=== PATIENT | male | born 1960 | race African-American/Black ===

== ENCOUNTER 2020-04-24 09:36 | Outpatient (REF) | payer OTHER, SELFPAY ==
[2020-04-24 11:47] LABS: MANUAL DIFF FLAG NO
[2020-04-24 11:54] LABS: Basophils Percent Auto 1.1 % (0-2); Eosinophils Absolute Auto 0.3 X10*3/uL (0.0-0.4); Eosinophils Percent Auto 6.6 % (0-4); Hematocrit 39.6 % (42-52); Hemoglobin 12.3 g/dl (14.0-18.0); Lymphocytes Absolute Auto 1.6 X10*3/uL (1.2-4.9); Lymphocytes Percent Auto 41.1 % (20-40); Mean Corpuscular HGB Conc 31.1 g/dl (31.0-36.0); Mean Corpuscular Hemoglobin 23.6 pg (27.0-33.0); Mean Platelet Volume 11.3 fL (9.4-12.4); Monocytes Absolute Auto 0.4 X10*3/uL (0.1-1.2); Monocytes Percent Auto 10.9 % (2-11); Neutrophils Absolute Auto 1.5 X10*3/uL (2.0-8.3); Neutrophils Percent Auto 40.3 % (45-73); Platelet Count 338 X10*3/uL (160-400); Red Blood Count 5.21 X10*6/uL (4.60-5.80); Red Cell Distribution Width 13.7 % (11.0-16.0); White Blood Count 3.8 X10*3/uL (4.8-10.8)
[2020-04-24 12:43] LABS: Prostate Specific Antigen 0.83 ng/mL (<0.05-4.0)
[2020-04-24 13:27] LABS: Alanine Aminotransferase 20 U/L (0-40); Albumin Level 4.3 g/dL (3.5-5.0); Alkaline Phosphatase 67 U/L (39-117); Anion Gap 11 (12-20); Aspartate Amino Transferase 22 U/L (5-37); Bilirubin Total 0.6 mg/dL (0.0-1.0); Blood Urea Nitrogen 10 mg/dL (9-16); Calcium 8.9 mg/dL (8.4-10.2); Carbon Dioxide 26 mmol/L (22-29); Chloride 105 mmol/L (96-108); Cholesterol 196 mg/dL; Estimated Glomerular Filt Rate > 60; Glucose Fasting 95 mg/dL (60-99); HDL Cholesterol 42 mg/dL; LDL Cholesterol Calculated 137 mg/dl; Potassium 4.1 mmol/l (3.3-5.1); Sodium 138 mmol/L (135-145); Total Protein 7.3 g/dL (6.5-8.0); Triglycerides 88 mg/dL
== END 2020-04-24 09:37 | disposition home or self-care (01) ==
LOC: HO.10HDL 09:36
PROVIDERS: Visit Provider Internal Medicine Medical Oncology
DX: E78.5 Hyperlipidemia, unspecified (principal); E66.3 Overweight
CPT/HCPCS: 36415; 80053; 80061; 84153; 85025

== ENCOUNTER 2020-08-13 09:40 | Outpatient (REF) | payer OTHER, SELFPAY ==
[2020-08-13 10:34] LABS: Basophils Percent Auto 0.5 % (0-2); Eosinophils Absolute Auto 0.2 X10*3/uL (0.0-0.4); Eosinophils Percent Auto 6.3 % (0-4); Hematocrit 41.4 % (42-52); Hemoglobin 12.6 g/dl (14.0-18.0); Imm Gran Abs Auto 0.01 X10*3/uL (0.00-0.03); Imm Gran Pct Auto 0.3 % (0.0-0.4); Lymphocytes Absolute Auto 1.9 X10*3/uL (1.2-4.9); Lymphocytes Percent Auto 49.9 % (20-40); MANUAL DIFF FLAG NO; Mean Corpuscular HGB Conc 30.4 g/dl (31.0-36.0); Mean Corpuscular Hemoglobin 23.6 pg (27.0-33.0); Mean Corpuscular Volume 77.5 fL (80-98); Mean Platelet Volume 11.3 fL (9.4-12.4); Monocytes Absolute Auto 0.4 X10*3/uL (0.1-1.2); Monocytes Percent Auto 10.4 % (2-11); Neutrophils Absolute Auto 1.3 X10*3/uL (2.0-8.3); Neutrophils Percent Auto 32.6 % (45-73); Platelet Count 312 X10*3/uL (160-400); Red Blood Count 5.34 X10*6/uL (4.60-5.80); Red Cell Distribution Width 13.6 % (11.0-16.0); White Blood Count 3.8 X10*3/uL (4.8-10.8)
[2020-08-13 11:05] LABS: Alanine Aminotransferase 20 U/L (0-40); Albumin Level 4.3 g/dL (3.5-5.0); Alkaline Phosphatase 71 U/L (39-117); Anion Gap 12 (12-20); Aspartate Amino Transferase 20 U/L (5-37); Bilirubin Total 0.6 mg/dL (0.0-1.0); Blood Urea Nitrogen 15 mg/dL (9-16); Carbon Dioxide 27 mmol/L (22-29); Chloride 105 mmol/L (96-108); Cholesterol 219 mg/dL; Estimated Glomerular Filt Rate > 60; Glucose Fasting 100 mg/dL (60-99); HDL Cholesterol 47 mg/dL; LDL Cholesterol Calculated 162 mg/dl; Sodium 140 mmol/L (135-145); Total Protein 7.5 g/dL (6.5-8.0); Triglycerides 50 mg/dL
[2020-08-13 11:28] LABS: Prostate Specific Antigen 0.63 ng/mL (<0.05-4.0)
== END 2020-08-13 09:41 | disposition home or self-care (01) ==
LOC: HO.10HDL 09:40
PROVIDERS: Visit Provider Internal Medicine Medical Oncology
DX: E78.5 Hyperlipidemia, unspecified (principal); E66.3 Overweight; Z12.5 Encounter for screening for malignant neoplasm of prostate
CPT/HCPCS: 36415; 80053; 80061; 84153; 85025

== ENCOUNTER 2021-04-13 11:03 | Outpatient (REF) | payer OTHER, SELFPAY ==
[2021-04-13 13:36] LABS: MANUAL DIFF FLAG NO
[2021-04-13 13:52] LABS: Basophils Percent Auto 1.3 % (0-2); Eosinophils Absolute Auto 0.2 X10*3/uL (0.0-0.4); Eosinophils Percent Auto 6.6 % (0-4); Hematocrit 38.7 % (42-52); Hemoglobin 11.8 g/dl (14.0-18.0); Imm Gran Abs Auto 0.01 X10*3/uL (0.00-0.03); Imm Gran Pct Auto 0.3 % (0.0-0.4); Lymphocytes Absolute Auto 1.4 X10*3/uL (1.2-4.9); Lymphocytes Percent Auto 44.1 % (20-40); Mean Corpuscular HGB Conc 30.5 g/dl (31.0-36.0); Mean Corpuscular Hemoglobin 23.2 pg (27.0-33.0); Mean Platelet Volume 11.6 fL (9.4-12.4); Monocytes Absolute Auto 0.4 X10*3/uL (0.1-1.2); Monocytes Percent Auto 11.6 % (2-11); Neutrophils Absolute Auto 1.2 X10*3/uL (2.0-8.3); Neutrophils Percent Auto 36.1 % (45-73); Platelet Count 331 X10*3/uL (160-400); Red Blood Count 5.09 X10*6/uL (4.60-5.80); Red Cell Distribution Width 13.5 % (11.0-16.0); White Blood Count 3.2 X10*3/uL (4.8-10.8)
[2021-04-13 14:58] LABS: Alanine Aminotransferase 17 U/L (0-40); Albumin Level 4.3 g/dL (3.5-5.0); Alkaline Phosphatase 67 U/L (39-117); Anion Gap 11 (12-20); Aspartate Amino Transferase 29 U/L (5-37); Bilirubin Total 0.7 mg/dL (0.0-1.0); Blood Urea Nitrogen 15 mg/dL (9-16); Calcium 8.9 mg/dL (8.4-10.2); Carbon Dioxide 26 mmol/L (22-29); Chloride 109 mmol/L (96-108); Estimated Glomerular Filt Rate > 60; Glucose Fasting 100 mg/dL (60-99); Potassium 4.1 mmol/L (3.3-5.1); Sodium 142 mmol/L (135-145); Total Protein 7.2 g/dL (6.5-8.0)
[2021-04-13 15:48] LABS: Prostate Specific Antigen 0.79 ng/mL (<0.05-4.0)
== END 2021-04-13 11:04 | disposition home or self-care (01) ==
LOC: HO.10HDL 11:03
PROVIDERS: Visit Provider Internal Medicine Medical Oncology
DX: Z12.5 Encounter for screening for malignant neoplasm of prostate (principal); E78.5 Hyperlipidemia, unspecified; D70.9 Neutropenia, unspecified; M10.9 Gout, unspecified; N40.0 Benign prostatic hyperplasia without lower urinary tract symptoms
CPT/HCPCS: 36415; 80053; 84153; 85025

== ENCOUNTER 2021-09-15 09:24 | Day surgery (SDC) | payer OTHER, SELFPAY ==
[2021-08-24 09:27] VITALS: BMI 26.7
--- NOTE | 2021-09-11 13:06 | HO.ANESPROP2 ---
HPI - Anesthesia Eval Consult details Narrative: 61yo M for Colonoscopy PMFSH Past Medical History Medical History (Updated 08/24/21 @ 09:26 by Jessica Astorga, RN) Arthritis Leukopenia Surgical History Surgical History (Updated 08/24/21 @ 09:26 by Jessica Astorga, RN) Hx of colonoscopy Social History Social History Patient Tobacco Use Status: Never used Tobacco Use of substances other than those prescribed or required for medical reasons: No Are you DNR?: No Advance Directives: Yes Advance Directives on File: Yes Advance Directives Date on File: 04/24/20 Recently lost weight without trying: No Nutrition Risks: No Nutritional Risk Meds Allergies Allergy/AdvReac Type Severity Reaction Status Date / Time peanut Allergy Itching Verified 09/15/21 09:51 scallops Allergy Hives Verified 09/15/21 09:51 Home Medications Medication Instructions Recorded Confirmed Last Taken Type No Known Home Meds 08/24/21 08/24/21 Unknown History Exam Exam Date and Time: September 11, 2021 1306 Height,Weight and Vital Signs: Height 6 ft Weight 89.358 kg Pertinent Lab Results Pertinent Lab Results: Laboratory Tests 04/13/21 04/13/21 11:11 11:11 WBC 3.2 L Hgb 11.8 L Hct 38.7 L Plt Count 331 Sodium 142 Potassium 4.1 Chloride 109 H Carbon Dioxide 26 BUN 15 Creatinine 1.16 Assessment and Plan Assessment Anesthesia Assessment: Chart Reviewed
[2021-09-15 09:31] VITALS: BMI 26.4
[2021-09-15 09:34] VITALS: BP 125/79; PULSE 67; RESP 16; TEMP 36.6; O2SAT 98
[2021-09-15] MEDS: Lactated Ringers 1,000 ML 100 ML IVCONT (09:53)
--- NOTE | 2021-09-15 10:17 | MHC.SHP ---
Pre-Procedural Eval Section A Date of Service: 09/15/21 Section B Chief Complaint: screening Details of Present Illness: see H&P no changes Relevant Family History (Specify if Yes): No Relevant Social History: None Present Medications: None Medical History: No relevant PMH History of Previous Operations: No relevant previous surgery Allergies: Allergies Allergy/AdvReac Type Severity Reaction Status Date / Time peanut Allergy Itching Verified 09/15/21 09:51 scallops Allergy Hives Verified 09/15/21 09:51 Review of Systems Sugical H&P ROS: Negative: Constitution, Cardiovascular, Respiratory, Neurological, Psychiatric, Hem-Onc, Allergic/Immunologic, Gastrointestinal, Genitourinary, Musculoskeletal, Integumentary, Endocrine and Eyes/Ears/Nose/Throat Exam Surgical H&P Exam: Normal: HEENT, Normal: Heart, Normal: Lungs, Normal: Extremities, Normal: Abdomen, Normal: Skin and Normal: Neurological Plan Diagnosis/Plan: Unchanged I have reviewed the history and physical and performed a pertinent physical examination on my patient. No changes have occurred unless specified.
--- NOTE | 2021-09-15 10:54 | P.BOP_ITS ---
Brief Operative Note Date of Service: 09/15/21 Pre-op diagnosis: screening Post-op diagnosis: same (colon polyp) Procedure: colonoscopy Surgeon: Ethan Schreiber Anesthesia: MAC Was an [employer] used for this Procedure?: No Estimated blood loss (mL): 2 Pathology: other (polyp x1) Condition: stable Disposition: PACU
[2021-09-15 10:59] VITALS: BP 94/52; PULSE 81; RESP 15; TEMP 36.1; O2SAT 97
--- NOTE | 2021-09-15 11:09 | OP_ITS ---
SURGEON: Ethan Schreiber MD INDICATIONS: Colon cancer screening. PREOPERATIVE DIAGNOSIS: POSTOPERATIVE DIAGNOSIS: PROCEDURE PERFORMED: Colonoscopy to the terminal ileum with snare polypectomy. ESTIMATED BLOOD LOSS: COMPLICATIONS: ANESTHESIA: ASSISTANTS: SPECIMENS: MEDICATIONS: Monitored anesthesia care. DESCRIPTION OF PROCEDURE: History and physical were performed. The risks and benefits of the procedure were explained to the patient. An informed consent was obtained. The patient was placed in the left lateral decubitus position. A digital rectal exam was performed and was found to be normal. The Olympus pediatric video colonoscope was introduced into the rectum and advanced to the cecum without difficulty. The cecum was identified by transillumination, palpation, and identification of ileocecal valve. Examination was performed. The scope was removed. He tolerated the procedure well and was returned to recovery area in stable condition. FINDINGS: The terminal ileum was examined and appeared normal. The visualized colonic mucosa was within normal limits without evidence of masses or ulcers. At 50 cm was a 6 mm polyp, which was removed with a cold snare and recovered via suction. No other polyps were identified. The quality of prep was good. Retroflexed examination showed some small internal hemorrhoids. IMPRESSION: Colon polyp. RECOMMENDATION: Follow up the biopsy results. MD OLVIN Ramirez/VIDA / [id number]
[2021-09-15 11:15] VITALS: BP 117/74; PULSE 81; RESP 15; TEMP 36.1; O2SAT 99
--- NOTE | 2021-09-15 14:02 | HO.POSTANES ---
Post Anesthesia Evaluation Post Anesthesia Evaluation Vital Signs: Vital Signs Temp Pulse Resp BP Pulse Ox 09/15/21 11:15 97 F 81 15 117/74 99 09/15/21 10:59 97.0 F 81 15 94/52 L 97 09/15/21 09:34 97.9 F 67 16 125/79 98 Anesthesia: Monitored Mental Status: Awake Pain Control: Satisfactory Nausea/Vomiting: None Hydration: Adequate
== END 2021-09-15 11:54 | disposition home or self-care (01) ==
PROVIDERS: PCP Internal Medicine Medical Oncology; Visit Provider Internal Medicine Gastroenterology
PROC: 0DJD8ZZ Inspection of Lower Intestinal Tract, Via Natural or Artificial Opening Endoscopic (ICD-10-PCS; CPT 45378; principal; 2021-09-15 10:40)
DX: Z12.11 Encounter for screening for malignant neoplasm of colon (principal); D12.5 Benign neoplasm of sigmoid colon; K64.8 Other hemorrhoids; D72.819 Decreased white blood cell count, unspecified
CPT/HCPCS: 45385; 88305

== ENCOUNTER 2022-04-07 10:04 | Outpatient (REF) | payer OTHER, SELFPAY ==
[2022-04-07 10:22] LABS: MANUAL DIFF FLAG NO
[2022-04-07 10:44] LABS: Basophils Percent Auto 0.7 % (0-2); Eosinophils Absolute Auto 0.2 X10*3/uL (0.0-0.4); Eosinophils Percent Auto 5.2 % (0-4); Hematocrit 38.9 % (42.0-52.0); Hemoglobin 11.9 g/dl (14.0-18.0); Imm Gran Abs Auto 0.01 X10*3/uL (0.00-0.03); Imm Gran Pct Auto 0.2 % (0.0-0.4); Lymphocytes Percent Auto 46.8 % (20-40); Mean Corpuscular HGB Conc 30.6 g/dl (31.0-36.0); Mean Corpuscular Volume 75.2 fL (80.0-98.0); Mean Platelet Volume 10.4 fL (9.4-12.4); Monocytes Absolute Auto 0.5 X10*3/uL (0.1-1.2); Monocytes Percent Auto 11.2 % (2-11); Neutrophils Absolute Auto 1.5 x10*3/uL (2.0-8.3); Neutrophils Percent Auto 35.9 % (45-73); Platelet Count 339 X10*3/uL (160-400); Red Blood Count 5.17 X10*6/uL (4.60-5.80); Red Cell Distribution Width 14.4 % (11.0-16.0); White Blood Count 4.3 X10*3/uL (4.8-10.8)
[2022-04-07 11:04] LABS: Alanine Aminotransferase 25 U/L (0-40); Albumin Level 4.3 g/dL (3.5-5.0); Alkaline Phosphatase 67 U/L (39-117); Anion Gap 12 (12-20); Aspartate Amino Transferase 29 U/L (5-37); Bilirubin Total 0.7 mg/dL (0.0-1.0); Blood Urea Nitrogen 9 mg/dL (9-16); Calcium 9.1 mg/dL (8.4-10.2); Carbon Dioxide 27 mmol/L (22-29); Chloride 104 mmol/L (96-108); Cholesterol 211 mg/dL; Estimated Glomerular Filt Rate > 60; Glucose Fasting 95 mg/dL (60-99); HDL Cholesterol 46 mg/dL; LDL Cholesterol Calculated 155 mg/dl; Potassium 3.9 mmol/L (3.3-5.1); Sodium 139 mmol/L (135-145); Total Protein 7.6 g/dL (6.5-8.0); Triglycerides 50 mg/dL
[2022-04-07 11:18] LABS: Prostate Specific Antigen 1.04 ng/mL (<0.05-4.0)
== END 2022-04-07 10:05 | disposition home or self-care (01) ==
LOC: HO.10HDL 10:04
PROVIDERS: Visit Provider Internal Medicine Medical Oncology
DX: E78.5 Hyperlipidemia, unspecified (principal); D70.9 Neutropenia, unspecified; N40.0 Benign prostatic hyperplasia without lower urinary tract symptoms; Z12.5 Encounter for screening for malignant neoplasm of prostate
CPT/HCPCS: 36415; 80053; 80061; 84153; 85025

== ENCOUNTER 2023-04-25 10:13 | Outpatient (REF) | payer OTHER, SELFPAY ==
[2023-04-25 10:50] LABS: MANUAL DIFF FLAG NO
[2023-04-25 10:53] LABS: Basophils Percent Auto 0.9 % (0-2); Eosinophils Absolute Auto 0.2 X10*3/uL (0.0-0.4); Eosinophils Percent Auto 4.8 % (0-4); Hematocrit 36.7 % (42.0-52.0); Hemoglobin 11.3 g/dl (14.0-18.0); Lymphocytes Absolute Auto 1.7 X10*3/uL (1.2-4.9); Lymphocytes Percent Auto 51.7 % (20-40); Mean Corpuscular HGB Conc 30.8 g/dl (31.0-36.0); Mean Corpuscular Hemoglobin 23.3 pg (27.0-33.0); Mean Corpuscular Volume 75.8 fL (80.0-98.0); Mean Platelet Volume 10.9 fL (9.4-12.4); Monocytes Absolute Auto 0.4 X10*3/uL (0.1-1.2); Monocytes Percent Auto 11.1 % (2-11); Neutrophils Absolute Auto 1.1 x10*3/uL (2.0-8.3); Neutrophils Percent Auto 31.5 % (45-73); Platelet Count 287 X10*3/uL (160-400); Red Blood Count 4.84 X10*6/uL (4.60-5.80); Red Cell Distribution Width 13.3 % (11.0-16.0); White Blood Count 3.3 X10*3/uL (4.8-10.8)
[2023-04-25 11:13] LABS: Alanine Aminotransferase 14 U/L (0-40); Alkaline Phosphatase 62 U/L (39-117); Anion Gap 12 (12-20); Aspartate Amino Transferase 25 U/L (5-37); Bilirubin Total 0.5 mg/dL (0.0-1.0); Blood Urea Nitrogen 10 mg/dL (9-16); Calcium 8.4 mg/dL (8.4-10.2); Carbon Dioxide 24 mmol/L (22-29); Chloride 108 mmol/L (96-108); Cholesterol 179 mg/dL (<200); Estimated Glomerular Filt Rate > 60; Glucose Fasting 95 mg/dL (60-99); HDL Cholesterol 41 mg/dL (>40); LDL Cholesterol Calculated 126 mg/dL (<100); Potassium 3.6 mmol/L (3.3-5.1); Sodium 140 mmol/L (135-145); Total Protein 7.2 g/dL (6.5-8.0); Triglycerides 60 mg/dL (<150)
[2023-04-25 11:22] LABS: Prostate Specific Antigen Scr 0.68 ng/mL (<0.05-4.0)
== END 2023-04-25 10:14 | disposition home or self-care (01) ==
LOC: HO.10HDL 10:13
PROVIDERS: Visit Provider Internal Medicine Medical Oncology
DX: E78.5 Hyperlipidemia, unspecified (principal); N40.0 Benign prostatic hyperplasia without lower urinary tract symptoms; M10.9 Gout, unspecified; Z12.5 Encounter for screening for malignant neoplasm of prostate
CPT/HCPCS: 36415; 80053; 80061; 84153; 85025

== ENCOUNTER 2023-12-15 10:20 | Outpatient (REF) | payer OTHER, SELFPAY ==
[2023-12-15 10:48] LABS: MANUAL DIFF FLAG NO
[2023-12-15 10:55] LABS: Basophils Absolute Auto 0.1 X10*3/uL (0.0-0.2); Basophils Percent Auto 1.3 % (0-2); Eosinophils Absolute Auto 0.2 X10*3/uL (0.0-0.4); Eosinophils Percent Auto 6.4 % (0-4); Hematocrit 37.6 % (42.0-52.0); Hemoglobin 11.8 g/dl (14.0-18.0); Lymphocytes Absolute Auto 1.9 X10*3/uL (1.2-4.9); Lymphocytes Percent Auto 50.5 % (20-40); Mean Corpuscular HGB Conc 31.4 g/dl (31.0-36.0); Mean Corpuscular Hemoglobin 23.7 pg (27.0-33.0); Mean Corpuscular Volume 75.5 fL (80.0-98.0); Mean Platelet Volume 10.2 fL (9.4-12.4); Monocytes Absolute Auto 0.4 X10*3/uL (0.1-1.2); Monocytes Percent Auto 11.2 % (2-11); Neutrophils Absolute Auto 1.2 x10*3/uL (2.0-8.3); Neutrophils Percent Auto 30.6 % (45-73); Platelet Count 333 X10*3/uL (160-400); Red Blood Count 4.98 X10*6/uL (4.60-5.80); Red Cell Distribution Width 13.4 % (11.0-16.0); White Blood Count 3.8 X10*3/uL (4.8-10.8)
[2023-12-15 11:14] LABS: Alanine Aminotransferase 17 U/L (0-40); Albumin Level 4.1 g/dL (3.5-5.0); Alkaline Phosphatase 63 U/L (39-117); Anion Gap 11 (12-20); Aspartate Amino Transferase 23 U/L (5-37); Bilirubin Total 0.6 mg/dL (0.0-1.0); Blood Urea Nitrogen 12 mg/dL (9-16); Calcium 9.1 mg/dL (8.4-10.2); Carbon Dioxide 25 mmol/L (22-29); Chloride 109 mmol/L (96-108); Estimated Glomerular Filt Rate > 60; Glucose Random 90 mg/dL (60-115); Potassium 3.9 mmol/L (3.3-5.1); Sodium 141 mmol/L (135-145); Total Protein 7.4 g/dL (6.5-8.0)
== END 2023-12-15 10:21 | disposition home or self-care (01) ==
LOC: HO.10HDL 10:20
PROVIDERS: Visit Provider Internal Medicine Medical Oncology
DX: E78.5 Hyperlipidemia, unspecified (principal); D70.9 Neutropenia, unspecified; R71.8 Other abnormality of red blood cells
CPT/HCPCS: 36415; 80053; 85025

== ENCOUNTER 2024-05-09 10:27 | Outpatient (REF) | payer OTHER, SELFPAY ==
[2024-05-09 13:04] LABS: MANUAL DIFF FLAG NO
[2024-05-09 13:07] LABS: Basophils Percent Auto 0.9 % (0-2); Eosinophils Absolute Auto 0.1 X10*3/uL (0.0-0.4); Eosinophils Percent Auto 3.4 % (0-4); Hemoglobin 12.2 g/dl (14.0-18.0); Imm Gran Abs Auto 0.01 X10*3/uL (0.00-0.03); Imm Gran Pct Auto 0.3 % (0.0-0.4); Lymphocytes Absolute Auto 1.2 X10*3/uL (1.2-4.9); Lymphocytes Percent Auto 37.9 % (20-40); Mean Corpuscular HGB Conc 31.3 g/dl (31.0-36.0); Mean Corpuscular Hemoglobin 23.6 pg (27.0-33.0); Mean Corpuscular Volume 75.3 fL (80.0-98.0); Mean Platelet Volume 10.8 fL (9.4-12.4); Monocytes Absolute Auto 0.3 X10*3/uL (0.1-1.2); Neutrophils Absolute Auto 1.6 x10*3/uL (2.0-8.3); Neutrophils Percent Auto 49.5 % (45-73); Platelet Count 333 X10*3/uL (160-400); Red Blood Count 5.18 X10*6/uL (4.60-5.80); Red Cell Distribution Width 13.8 % (11.0-16.0); White Blood Count 3.3 X10*3/uL (4.8-10.8)
[2024-05-09 13:51] LABS: Prostate Specific Antigen 1.12 ng/mL (<0.05-4.0)
[2024-05-09 13:55] LABS: Alanine Aminotransferase 22 U/L (0-40); Albumin Level 4.5 g/dL (3.5-5.0); Alkaline Phosphatase 74 U/L (39-117); Anion Gap 13 (12-20); Aspartate Amino Transferase 26 U/L (5-37); Bilirubin Total 0.7 mg/dL (0.0-1.0); Blood Urea Nitrogen 15 mg/dL (9-16); Calcium 9.5 mg/dL (8.4-10.2); Carbon Dioxide 26 mmol/L (22-29); Chloride 108 mmol/L (96-108); Cholesterol 204 mg/dL (<200); Estimated Glomerular Filt Rate > 60; Glucose Fasting 83 mg/dL (60-99); HDL Cholesterol 53 mg/dL (>40); LDL Cholesterol Calculated 141 mg/dL (<100); Potassium 3.8 mmol/L (3.3-5.1); Sodium 143 mmol/L (135-145); Triglycerides 50 mg/dL (<150)
== END 2024-05-09 10:28 | disposition home or self-care (01) ==
LOC: HO.10HDL 10:27
PROVIDERS: Visit Provider Internal Medicine Medical Oncology
DX: E78.5 Hyperlipidemia, unspecified (principal); E66.3 Overweight; N52.9 Male erectile dysfunction, unspecified; Z12.5 Encounter for screening for malignant neoplasm of prostate
CPT/HCPCS: 36415; 80053; 80061; 84153; 85025

== ENCOUNTER 2025-04-29 09:51 | Outpatient (REF) | payer OTHER, SELFPAY ==
--- OUTSIDE RECORDS SUMMARY | 2024-01-03 12:00 | XMS_ITS ---
Author Organization Radu Benz III, MD Address [address] [place] [address] [place] [address] Care Team Providers Care Ditcher Name Role Phone Dr. Radu Benz III Primary Care Provider Allergies Allergen (clinical drug ingredient) Drug/Non Drug Allergy documented on EMR Reaction Allergy Type Onset Date Status Fish derivative (substance) Fish-derived Products rash Drug Allergy Active Shellfish (FN) Shellfish-derived Products Unknown Drug Allergy Active REASON FOR VISIT Right knee pain, Low back pain, Benign prostatic hypertrophy, Cervical radiculopathy, Gout, Hyperlipidemia, Overweight Medications Medication SIG (Take, Route, Frequency, Duration) Notes Start Date End Date Status Tadalafil 20 MG 1 tablet Orally Once a day 022 Active EPINEPHrine 0.3 MG/0.3ML as directed Inj ection once prn allergy 08/14/2020 Active Social History Tobacco Use: Social History Observation Description Date Details (start date - stop date) Never Smoker NA - NA Sex Assigned At : Social History Observation Description Sex Assigned At Male Tobacco Use/Smoking Question Answer Notes Patient is a nonsmoker Additional Findings: Tobacco Non-User Aggressive non-smoker Vital Signs Temperature 98.2 degrees Fahrenheit 01/03/20 24 Blood pressure systolic 133 mm Hg 01/03/20 24 Blood pressure diastolic 86 mm Hg 024 Heart Rate 74 /min 01/03/2024 Height 72 in 01/03/2024 Weight 202 lbs 01/03/2024 BMI 27.39 kg/m2 01/03/2024 Encounters Encounter Location Date Provider Diagnosis Radu Benz III, MD [address] [place] [address] [place] [id number] 01/03/2024 Radu Benz Hyperlipidemia E78.5 ; Overweight E66.3 ; Erectile dysfunction, unspecified erectile dysfunction type N52.9 ; Lumbar back pain M54.5 ; Headaches, cluster G44.009 ; Left inguinal hernia K40.90 and Neutropenia D70.9 Assessments Encounter Date Diagnosis (ICD Code) Assessment Notes Treat ment Notes Treatment Clinical Notes 01/03/2024 Hyperlipidemia (ICD-10 - E78.5) The fasting lipid profile done April 25, 2023 choices used to be well within the target range. I recommended a healthy diet and some weight loss but no change in his regimen was needed.He has tested negative for hemoglobin S. 01/03/2024 Overweight (ICD-10 - E66.3) He is slightly overweight. We made a plan to lose weight at a rate of one half of a pound per week. 01/03/2024 Erectile dysfunction , unspecified erectile dysfunction type (ICD-10 - N52.9) This problem has been addressed with a tadalafil prescription which is effective. 01/03/2024 Lumbar back pain (ICD-10 - M54.5) Back pain is mild and intermittent. It is managed conservatively. He is avoiding heavy lifting. 01/03/2024 Headaches, cluster (ICD-10 - G44.009) He reports having very few headaches in the last year. 01/03/2024 Left inguinal hernia (ICD-10 - K40.90) There is no residual hernia on either side. He has occasional mild pain in the area of the scar. 01/03/2024 Neutropenia (ICD-10 - D70.9) His white blood cell count is 3800 due to a low neutrophil count. He has had no infections and feels well. He will be observed. Plan Of Treatment Medication Medication Name Sig Start Date Stop Date Notes Tadalafil 20 MG 1 tablet Orally Once a day 01/04/2022 EPINEPHrine 0.3 MG/0.3ML as directed Inj ection once prn allergy 08/14/2020 Pending Test Test Name Order Date PROFILE, FASTING (COMPREHENSIVE METABOLI C) 01/03/2024 PSA, TOTAL 01/03/2024 CBC WITH AUTO DIFF 01/03/2024 Lipid Panel 01/03/2024 Next Appt Details Follow Up: As Scheduled, [place] son: OV, Annual Exam Provider Name:Radu Benz 05/17/2025 04:00:00 PM, [address] [place] [address] [address], [place], [phone], Progress Notes * Rebeca OSHEAOB:1960 (63 yo M)Acc No.[id number]:01/03/2024 Progress Notes Patient: Earnest Bowser Provider: Yoli Benz MD :1960 A ge:63 Y S ex:Male Date:01/03/2024 Address:[address] [place], [place] [id number] Subjective: * Chief Complaints: * R ight knee painLow back painBenign prostatic hypertrophyCervical radiculopathyGoutHyperlipidemiaOverweight * HPI: C OVID-19 Screening: He returns for management of medical issues. His low back pain and right knee pain are much better. He has gained 2 pounds in his body mass index is 27. His blood pressure is stable today. His eyesight and hearing are within normal limits. We have discussed weight loss at length today. No change was made in his regimen. Questions H ave you experienced fever, chills, cough, sore throat, shortness of breath, difficulty breathing, muscle aches, loss of taste or smell? N o H ave you been exposed to the virus within the last 10 days? N o H ave you travelled internationally in the last 10 days? N o H ave you been exposed to COVID-19 in the past? N o * ROS: G eneral/Constitutional: pain o nly normal aches and pains. C hills d enies.?Fatigue a dmits. F ever d enies. E NT: Decreased hearing d enies. R espiratory: Cough d enies. C ardiovascular: Chest pain with exertion d enies. D yspnea on exertion?denies. S hortness of breath d enies. G astrointestinal: Constipation o ccasional. D ecreased appetite d enies. D iarrhea d enies. H eartburn d enies. N ausea d enies. R ectal bleeding d enies. V omiting d enies. H ematology: bruising d enies. p etechiae d enies. S wollen glands n one have been noted. G enitourinary: Frequent urination o nce a night. M usculoskeletal: Muscle aches d enies. P ainful joints d enies. S ciatica d enies. W eakness d enies. S kin: Itching d enies. R caryl d enies. S kin lesion(s)?denies. N eurologic: Difficulty speaking d enies. D izziness d enies.?Headache d enies. L ow back pain d enies. P sychiatric: Depressed mood d enies. * Medical History: * Surgical History: c olonoscopy 06/2011Colonoscopy [facility] 08/2021 * Hospitalization/Major Diagno stic Procedure: D enies Past Hospitalization * Family History: F ather: 60 yrs, unknown. M other: 78 yrs, cardiac disease, hypertension, diagnosed with HTN. 4 brother(s) , 8 sister(s) . 1 son(s) , 2 daughter(s) . . A sister has breast cancer. A brother had esophageal cancer. 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 He was born in [place], [place]. * Medications: T akingEPINEPHrine 0.3 MG/0.3ML Solution Auto-injector as directed Injection once prn allergyTadalafil 20 MG Tablet 1 tablet Orally Once a dayMedication List reviewed and reconciled with the patientTaking EPINEPHrine 0.3 MG/0.3ML Solution Auto- injector as directed Injection once prn allergyTaking Tadalafil 20 MG Tablet 1 tablet Orally Once a dayMedication List reviewed and reconciled with the patient * Allergies: F braulio-derived Products: rash - AllergyShellfish-derived Productsno[Allergies Verified] Objective: * Vitals: H t: 72, Wt: 202, BMI:27.39, BP: 133/86, HR: 74, Temp: 98.2, Wt-k.63. * P ast Orders: L ab:Comprehensive Met. Panel (Order Date - 12/15/2023) (Collection Date - 12/15/2023) Value Reference Range Sodium 141 135-145 - mmol/L Bilirubin Total 0.6 0.0-1.0 - mg/dL Aspartate Amino Transferase 23 5-37 - U/L Alanine Aminotransferase 17 0-40 - U/L Total Protein 7.4 6.5-8.0 - g/dL Albumin Level 4.1 3.5-5.0 - g/dL Alkaline Phosphatase 63 39-117 - U/L Potassium 3.9 3.3-5.1 - mmol/L Chloride 109 H 96-108 - mmol/L Carbon Dioxide 25 22-29 - mmol/L Anion Gap 11 L 12-20 - Blood Urea Nitrogen 12 9-16 - mg/dL Creatinine 0.86 0.5-1.4 - mg/dL Estimated Glomerular Filt Rate > 60 - Glucose Random 90 60-115 - mg/dL Calcium 9.1 8.4-10.2 - mg/dL Lab:Complete Blood Count Aut o Diff * Order Date 12/15/2023 04/25/2023 04/07/2022 White Blood Count 3.8 L (Ref Range: 4.8-10.8 X10*3/uL) 3.3 L (Ref Range: 4.8-10.8 X10*3/uL) 4.3 L (Ref Range: 4.8-10.8 X10*3/uL) Red Blood Count 4.98 (Ref Range: 4.60-5.80 X10*6/uL) 4.84 (Ref Range: 4.60-5.80 X10*6/uL) 5.17 (Ref Range: 4.60-5.80 X10*6/uL) Hemoglobin 11.8 L (Ref Range: 14.0-18.0 g/dl) 11.3 L (Ref Range: 14.0-18.0 g/dl) 11.9 L (Ref Range: 14.0-18.0 g/dl) Hematocrit 37.6 L (Ref Range: 42.0-52.0 %) 36.7 L (Ref Range: 42.0-52.0 %) 38.9 L (Ref Range: 42.0-52.0 %) Mean Corpuscular Volume 75.5 L (Ref Range: 80.0-98.0 fL) 75.8 L (Ref Range: 80.0-98.0 fL) 75.2 L (Ref Range: 80.0-98.0 fL) Mean Corpuscular Hemoglobin 23.7 L (Ref Range: 27.0-33.0 pg) 23.3 L (Ref Range: 27.0-33.0 pg) 23.0 L (Ref Range: 27.0-33.0 pg) Mean Corpuscular HGB Conc 31.4 (Ref Range: 31.0-36.0 g/dl) 30.8 L (Ref Range: 31.0-36.0 g/dl) 30.6 L (Ref Range: 31.0-36.0 g/dl) Red Cell Distribution Width 13.4 (Ref Range: 11.0-16.0 %) 13.3 (Ref Range: 11.0-16.0 %) 14.4 (Ref Range: 11.0-16.0 %) Platelet Count 333 (Ref Range: 160-400 X10*3/uL) 287 (Ref Range: 160-400 X10*3/uL) 339 (Ref Range: 160-400 X10*3/uL) Mean Platelet Volume 10.2 (Ref Range: 9.4-12.4 fL) 10.9 (Ref Range: 9.4-12.4 fL) 10.4 (Ref Range: 9.4-12.4 fL) Neutrophils Percent Auto 30.6 L (Ref Range: 45-73 %) 31.5 L (Ref Range: 45-73 %) 35.9 L (Ref Range: 45-73 %) Imm Gran Pct Auto 0.0 (Ref Range: 0.0-0.4 %) 0.0 (Ref Range: 0.0-0.4 %) 0.2 (Ref Range: 0.0-0.4 %) Lymphocytes Percent Auto 50.5 H (Ref Range: 20-40 %) 51.7 H (Ref Range: 20-40 %) 46.8 H (Ref Range: 20-40 %) Monocytes Percent Auto 11.2 H (Ref Range: 2-11 %) 11.1 H (Ref Range: 2-11 %) 11.2 H (Ref Range: 2-11 %) Eosinophils Percent Auto 6.4 H (Ref Range: 0-4 %) 4.8 H (Ref Range: 0-4 %) 5.2 H (Ref Range: 0-4 %) Basophils Percent Auto 1.3 (Ref Range: 0-2 %) 0.9 (Ref Range: 0-2 %) 0.7 (Ref Range: 0-2 %) NRBC Pct Auto 0.0 (Ref Range: 0.0-0.2 /100WBC) 0.0 (Ref Range: 0.0-0.2 /100WBC) 0.0 (Ref Range: 0.0-0.2 /100WBC) Neutrophils Absolute Auto 1.2 L (Ref Range: 2.0-8.3 x10*3/uL) 1.1 L (Ref Range: 2.0-8.3 x10*3/uL) 1.5 L (Ref Range: 2.0-8.3 x10*3/uL) Imm Gran Abs Auto 0.00 (Ref Range: 0.00-0.03 X10*3/uL) 0.00 (Ref Range: 0.00-0.03 X10*3/uL) 0.01 (Ref Range: 0.00-0.03 X10*3/uL) Lymphocytes Absolute Auto 1.9 (Ref Range: 1.2-4.9 X10*3/uL) 1.7 (Ref Range: 1.2-4.9 X10*3/uL) 2.0 (Ref Range: 1.2-4.9 X10*3/uL) Monocytes Absolute Auto 0.4 (Ref Range: 0.1-1.2 X10*3/uL) 0.4 (Ref Range: 0.1-1.2 X10*3/uL) 0.5 (Ref Range: 0.1-1.2 X10*3/uL) Eosinophils Absolute Auto 0.2 (Ref Range: 0.0-0.4 X10*3/uL) 0.2 (Ref Range: 0.0-0.4 X10*3/uL) 0.2 (Ref Range: 0.0-0.4 X10*3/uL) Basophils Absolute Auto 0.1 (Ref Range: 0.0-0.2 X10*3/uL) 0.0 (Ref Range: 0.0-0.2 X10*3/uL) 0.0 (Ref Range: 0.0-0.2 X10*3/uL) NRBC Abs Auto 0.000 (Ref Range: 0.0-0.012 X10*3/uL) 0.000 (Ref Range: 0.0-0.012 X10*3/uL) 0.000 (Ref Range: 0.0-0.012 X10*3/uL) * Examination: G eneral Examination: GENERAL APPEARANCE: p leasant, well nourished, well developed, in no acute distress, calm and relaxed , overweight , man. HEAD: a traumatic, normocephalic. EYES: e atul, perrla, anicteric, conjugate. EARS: n ormal. NOSE: s eptum intact. ORAL CAVITY: n ormal, unremarkable. NECK/THYROID: n o jugular venous distention, no carotid bruit, thyroid normal. LYMPH NODES: n o enlarged lymph nodes,spleen normal. SKIN: n o suspicious lesions, anicteric. HEART: n o clicks, gallops, murmurs, or rubs, regular rhythm, S1, S2 normal, no s3, or vascular bruits. LUNGS: c lear to auscultation . BREASTS: no masses palpable bilaterally. ABDOMEN: b owel sounds normal, no ascites, no organomegaly, no mass , overweight. RECTAL EXAM: n ot examined. MUSCULOSKELETAL: e xtremities unremarkable, no clubbing, cyanosis or edema, Normal range of motion right neck with mild crepitus right knee. PERIPHERAL PULSES: n ormal. NEUROLOGIC: a lert and oriented, cranial nerves 2-12 grossly intact, deep tendon reflexes 2+ symmetrical, motor strength normal upper and lower extremities, sensory exam intact. PSYCH: a lert, oriented. Assessment: * Assessment: 1. H yperlipidemia - E78.5 (Primary), The fasting lipid profile done April 25, 2023 choices used to be well within the target range. I recommended a healthy diet and some weight loss but no change in his regimen was needed.He has tested negative for hemoglobin S. 2 . O verweight - E66.3, He is slightly overweight. We made a plan to lose weight at a rate of one half of a pound per week. 3 . E rectile dysfunction, unspecified erectile dysfunction type - N52.9, This problem has been addressed with a tadalafil prescription which is effective. 4 . L umbar back pain - M54.5, Back pain is mild and intermittent. It is managed conservatively. He is avoiding heavy lifting. 5 . H eadaches, cluster - G44.009, He reports having very few headaches in the last year. 6. L eft inguinal hernia - K40.90, There is no residual hernia on either side. He has occasional mild pain in the area of the scar. 7 . N eutropenia - D70.9, His white blood cell count is 3800 due to a low neutrophil count. He has had no infections and feels well. He will be observed. Plan: * Treatment: 2. O verweight L AB: PROFILE, FASTING (COMPREHENSIVE METABOLIC) L AB: PSA, TOTAL L AB: CBC WITH AUTO DIFF L AB: Lipid Panel 3. E rectile dysfunction, unspecified erectile dysfunction type L AB: PROFILE, FASTING (COMPREHENSIVE METABOLIC) L AB: PSA, TOTAL L AB: CBC WITH AUTO DIFF L AB: Lipid Panel * Procedure Codes: * Preventive Medicine: Counseling: C are goal follow-up plan: Counseling for abnormal BMI given Y es Above Normal BMI Follow-up D ietary management education, guidance, and counseling, Dietary needs education, Exercise promotion: strength training, Exercise promotion: stretching, Feeding regime, Giving encouragement to exercise, Lifestyle education regarding diet, Nutrition / feeding management, Nutrition therapy, Prescribed activity/exercise education, Prescribed diet education, Prescribed dietary intake, Special diet education, Weight monitoring , Intervention, Order not done: Medical or Other reason not done * Follow Up: A s Scheduled (Reason: OV, Annual Exam) * Images: * Sign off status: Completed true * Provider: Yoli Benz MD Date: 0 01/03/2024 Generated for Maurisio chery/Abdelrahman/Nolberto on: 11:15 AM EDT History and Physical Notes * HPI (History of Present Illness) Category Sub-Category Detail Notes COVID-19 Screening Questions Have you had any new onset fever, chills, cough, congestion, sore throat, shortness of breath, muscle aches?: No Have you been exposed to the virus with n the last 10 days?: No Have you travelled internationally in [facility] last 10 days?: No Have you been exposed to COVID-19 in the past?: No Examination Category Sub-Category Detail Notes General Examination GENERAL APPEARANCE: pleasant , well nourished, well developed, in no acute distress, calm and relaxed , overweight , man HEAD: atraumatic, normocep halic EYES: eomi, perrla, anicte tina, conjugate EARS: normal NOSE: septum intact NECK/THYROID: no jugular venous di stention, no carotid bruit, thyroid normal HEART: no clicks, gallops, murmurs, or rubs, regular rhythm, S1, S2 normal, no s3, or vascular bruits LUNGS: clear to auscultatio n ABDOMEN: bowel sounds normal, no ascites, no organomegaly, no mass , overweight NEUROLOGIC: alert and oriented, cranial nerves 2-12 grossly intact, deep tendon reflexes 2+ symmetrical, motor strength normal upper and lower extremities, sensory exam intact SKIN: no suspicious lesion s, anicteric PERIPHERAL PULSES: normal BREASTS: no masses palpable b ilaterally MUSCULOSKELETAL: extremities unremark able, no clubbing, cyanosis or edema, Normal range of motion right neck with mild crepitus right knee LYMPH NODES: no enlarged lymph no juan,spleen normal RECTAL EXAM: not examined PSYCH: alert, oriented ORAL CAVITY: normal, unremarkable
--- OUTSIDE RECORDS SUMMARY | 2024-05-15 12:15 | XMS_ITS ---
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 Radu Benz III Primary Care Provider [phone] Allergies Allergen (clinical drug ingredient) Drug/Non Drug Allergy documented on EMR Reaction Allergy Type Onset Date Status Fish derivative (substance) Fish-derived Products rash Drug Allergy Active Shellfish (FN) Shellfish-derived Products Unknown Drug Allergy Active Results Component Value Reference Range Notes URINE DIP STICK Reviewed date:05/15/2024 04:11:09 PM Interpretation: Performing Lab: Notes/Report: SG 1.030 1.005 - 1.025 pH 5.0 5.0 - 9.0 ROMI Negative Negative - NIT Negative Negative - PRO 15 Negative - Trace GLU Negative Negative - KET 5 Negative - UBG 0.2 0.1 - 1.8 CARLOS ALBERTO 1 0.2 - 1.3 BLD Negative Negative - REASON FOR VISIT annual exam Medications Medication SIG (Take, Route, Frequency, Duration) Notes Start Date End Date Status Tadalafil 20 MG TAKE 1 TABLET BY SHAQUILLE ONCE A DAY DIRECTED FOR 10 DAYS NEEDS TEVA BRAND-- Active EPINEPHrine 0.3 MG/0.3ML as directed Inj ection once prn allergy for 1 days 08/14/2020 Active Social History Tobacco Use: Social History Observation Description Date Details (start date - stop date) Never Smoker NA - NA Sex Assigned At : Social History Observation Description Sex Assigned At Male Tobacco Use/Smoking Question Answer Notes Patient is a nonsmoker Additional Findings: Tobacco Non-User Aggressive non-smoker Alcohol Screen Question Answer Notes Did you have a drink containing alcohol in the p ast year? No Points 0 Interpretation Negative Vital Signs Temperature 98.6 degrees Fahrenheit 05/15/20 24 Blood pressure systolic 129 mm Hg 05/15/20 24 Blood pressure diastolic 76 mm Hg 024 Heart Rate 88 /min 05/15/2024 Height 72 in 05/15/2024 Weight 200 lbs 05/15/2024 BMI 27.12 kg/m2 05/15/2024 Encounters Encounter Location Date Provider Diagnosis Radu Benz III, MD [address] [place] [address] [place] [address] 05/15/2024 Radu Benz Hyperlipidemia E78.5 ; Overweight E66.3 ; Neutropenia D70.9 ; Nocturia R35.1 ; Lumbar back pain M54.5 ; Headaches, cluster G44.009 ; Left inguinal hernia K40.90 ; Breast mass in male N63.0 and Gout M10.9 Assessments Encounter Date Diagnosis (ICD Code) Assessment Notes Treat ment Notes Treatment Clinical Notes 05/15/2024 Hyperlipidemia (ICD-10 - E78.5) His fasting cholesterol is 204. We discussed diet and nutrition at length today. 05/15/2024 Overweight (ICD-10 - E66.3) He is slightly overweight. We made a plan to lose weight at a rate of one half of a pound per week. 05/15/2024 Neutropenia (ICD-10 - D70.9) His total white blood cell count is slightly low. It has fallen from 3.8-3.2. The lymphocyte population is normal and the neutrophils are slightly low at 1600. He has had no infections and will be observed. 05/15/2024 Nocturia (ICD-10 - R35.1) He arises jin sleep once a night and sometimes twice to urinate. We have discussed lifestyle modifications he could make to reduce nocturia. 05/15/2024 Lumbar back pain (ICD-10 - M54.5) Back pain is mild and intermittent. It is managed conservatively. He is avoiding heavy lifting. 05/15/2024 Headaches, cluster (ICD-10 - G44.009) He reports having very few headaches in the last year. 05/15/2024 Left inguinal hernia (ICD-10 - K40.90) There is no residual hernia on either side. He has occasional mild pain in the area of the scar. 05/15/2024 Breast mass in male (ICD-10 - N63.0) Both breasts were normal today and this problem has resolved. 05/15/2024 Gout (ICD-10 - M10.9) He has had no attacks of gout since his last visit. Plan Of Treatment Medication Medication Name Sig Start Date Stop Date Notes Tadalafil 20 MG TAKE 1 TABLET BY SHAQUILLE TH ONCE A DAY DIRECTED FOR 10 DAYS NEEDS TEVA BRAND-- EPINEPHrine 0.3 MG/0.3ML as directed Inj ection once prn allergy for 1 days 08/14/2020 Pending Test Test Name Order Date PROFILE, FASTING (COMPREHENSIVE METABOLI C) 05/15/2024 PSA, TOTAL 05/15/2024 CBC w DIFF 05/15/2024 Lipid Panel 05/15/2024 Next Appt Details Follow Up: 1 Year, Reason: a nnual exam review labs, Annual check-up Provider Name:Radu Benz , 05/17/2025 04:00:00 PM, [address] [place] [address] , [address], [id number], Progress Notes * Rebeca OSHEAOB:1960 (64 yo M)Acc No.[id number]:05/15/2024 Progress Notes Patient: Earnest HECK Provider: Yoli Benz MD :1960 A ge:64 Y S ex:Male Date:05/15/2024 Address:[address] [place], [place] [id number] Subjective: * Chief Complaints: * A nnual exam * HPI: D epression Screening: PHQ-9 L ittle interest or pleasure in doing things?Not at all F eeling down, depressed, or hopeless N ot at all T rouble falling or staying asleep, or sleeping too much N ot at all F eeling tired or having little energy N ot at all P oor appetite or overeating N ot at all F eeling bad about yourself or that you are a failure, or have let yourself or your family down N ot at all T rouble concentrating on things, such as reading the newspaper or watching television N ot at all M oving or speaking so slowly that other people could have noticed; or the opposite, being so fidgety or restless that you have been moving around a lot more than usual N ot at all T houghts that you would be better off or of hurting yourself in some way N ot at all T otal Score 0 C OVID-19 Screening: Questions H ave you experienced fever, chills, cough, sore throat, shortness of breath, difficulty breathing, muscle aches, loss of taste or smell? N o H ave you been exposed to the virus within the last 10 days? N o H ave you travelled internationally in the last 10 days? N o H ave you been exposed to COVID-19 in the past? N o S ARANZA Questions: SDOH Questions I n the past year have you been worried about losing your housing? N o I n the past year have you or any family members you live with been unable to get any of the following when it was really needed? Check all that apply: N one * : Mr. Oshea, a 64-year-old male, presented with a history of knee pain, which he reported as being manageable. He also mentioned a previous hernia issue, which has not been bothering him recently. He experiences back pain, which he noted changes with the weather. He also mentioned experiencing headaches. He works more than 40 hours a week, which he acknowledges is more than he should. He has lost 2 lbs recently, which the doctor attributes to muscle gain. His blood work showed slightly low white blood cells, specifically neutrophils, but this has been a consistent finding and is not causing any harm. His cholesterol is slightly over the target, but overall, his blood work is normal. He has a family history of prostate cancer and is aware of the increased risk. He has been trying to incorporate more exercise into his routine. Blood Sugar Level is Normal. * ROS: G eneral/Constitutional: pain l ow back and knees, otherwise only normal aches and pains. C hills d enies. F atigue a dmits. F ever d enies. E [...] Muscle aches d enies. P ainful joints B oth knees.?Sciatica d enies. W eakness d enies. S kin: Itching d enies. R caryl d enies. S kin lesion(s)?denies. N eurologic: Difficulty speaking d enies. D izziness d enies.?Headache d enies. L ow back pain d enies. P sychiatric: Depressed mood d enies. * Medical History: * Surgical History: c olonoscopy 06/2011Colonoscopy [facility] 08/2021No history * Hospitalization/Major Diagno stic Procedure: N o history * Family History: F ather: 60 yrs, unknown. M other: 78 yrs, cardiac disease, hypertension, diagnosed with HTN. 4 brother(s) , 8 sister(s) . 1 son(s) , 2 daughter(s) . . A sister has breast cancer. A brother had esophageal cancer. Prostate cancer. * Social History: T obacco Use: T obacco Use/Smoking P atient is a n onsmoker A dditional Findings: Tobacco Non-User A ggressive non-smoker D rugs/Alcohol: D rugs H ave you used drugs other than those for medical reasons in the past 12 months? N o Alcohol Screen D id you have a drink containing alcohol in the past year? N o P oints 0 I nterpretation N egative M iscellaneous: D omestic violence: no. Marital status: single. 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 He was born in [place], [place]. The patient is trying to incorporate more exercise into his routine. He works more than 40 hours a week. * Medications: T akingEPINEPHrine 0.3 MG/0.3ML Solution Auto-injector as directed Injection once prn allergy Tadalafil 20 MG Tablet TAKE 1 TABLET BY MOUTH ONCE A DAY DIRECTED FOR 10 DAYS NEEDS TEVA BRAND-- Medication List reviewed and reconciled with the patientTaking EPINEPHrine 0.3 MG/0.3ML Solution Auto-injector as directed Injection once prn allergy Taking Tadalafil 20 MG Tablet TAKE 1 TABLET BY MOUTH ONCE A DAY DIRECTED FOR 10 DAYS NEEDS TEVA BRAND-- Medication List reviewed and reconciled with the patient * Allergies: F braulio-derived Products: rash - AllergyShellfish-derived Productsno[Allergies Verified] Objective: * Vitals: H t: 72, Wt: 200, BMI:27.12, BP: 129/76, HR: 88, Temp: 98.6, Wt-k.72. * P ast Orders: Lab:Complete Blood Count Aut o Diff * Collection Date 05/09/2024 12/15/2023 04/25/2023 Collection Time 10:34 AM 10:25 AM 10:20 AM Order Date 05/09/2024 12/15/2023 04/25/2023 White Blood Count 3.3 L (Ref Range: 4.8-10.8 X10*3/uL) 3.8 L (Ref Range: 4.8-10.8 X10*3/uL) 3.3 L (Ref Range: 4.8-10.8 X10*3/uL) Red Blood Count 5.18 (Ref Range: 4.60-5.80 X10*6/uL) 4.98 (Ref Range: 4.60-5.80 X10*6/uL) 4.84 (Ref Range: 4.60-5.80 X10*6/uL) Hemoglobin 12.2 L (Ref Range: 14.0-18.0 g/dl) 11.8 L (Ref Range: 14.0-18.0 g/dl) 11.3 L (Ref Range: 14.0-18.0 g/dl) Hematocrit 39.0 L (Ref Range: 42.0-52.0 %) 37.6 L (Ref Range: 42.0-52.0 %) 36.7 L (Ref Range: 42.0-52.0 %) Mean Corpuscular Volume 75.3 L (Ref Range: 80.0-98.0 fL) 75.5 L (Ref Range: 80.0-98.0 fL) 75.8 L (Ref Range: 80.0-98.0 fL) Mean Corpuscular Hemoglobin 23.6 L (Ref Range: 27.0-33.0 pg) 23.7 L (Ref Range: 27.0-33.0 pg) 23.3 L (Ref Range: 27.0-33.0 pg) Mean Corpuscular HGB Conc 31.3 (Ref Range: 31.0-36.0 g/dl) 31.4 (Ref Range: 31.0-36.0 g/dl) 30.8 L (Ref Range: 31.0-36.0 g/dl) Red Cell Distribution Width 13.8 (Ref Range: 11.0-16.0 %) 13.4 (Ref Range: 11.0-16.0 %) 13.3 (Ref Range: 11.0-16.0 %) Platelet Count 333 (Ref Range: 160-400 X10*3/uL) 333 (Ref Range: 160-400 X10*3/uL) 287 (Ref Range: 160-400 X10*3/uL) Mean Platelet Volume 10.8 (Ref Range: 9.4-12.4 fL) 10.2 (Ref Range: 9.4-12.4 fL) 10.9 (Ref Range: 9.4-12.4 fL) Neutrophils Percent Auto 49.5 (Ref Range: 45-73 %) 30.6 L (Ref Range: 45-73 %) 31.5 L (Ref Range: 45-73 %) Imm Gran Pct Auto 0.3 (Ref Range: 0.0-0.4 %) 0.0 (Ref Range: 0.0-0.4 %) 0.0 (Ref Range: 0.0-0.4 %) Lymphocytes Percent Auto 37.9 (Ref Range: 20-40 %) 50.5 H (Ref Range: 20-40 %) 51.7 H (Ref Range: 20-40 %) Monocytes Percent Auto 8.0 (Ref Range: 2-11 %) 11.2 H (Ref Range: 2-11 %) 11.1 H (Ref Range: 2-11 %) Eosinophils Percent Auto 3.4 (Ref Range: 0-4 %) 6.4 H (Ref Range: 0-4 %) 4.8 H (Ref Range: 0-4 %) Basophils Percent Auto 0.9 (Ref Range: 0-2 %) 1.3 (Ref Range: 0-2 %) 0.9 (Ref Range: 0-2 %) NRBC Pct Auto 0.0 (Ref Range: 0.0-0.2 /100WBC) 0.0 (Ref Range: 0.0-0.2 /100WBC) 0.0 (Ref Range: 0.0-0.2 /100WBC) Neutrophils Absolute Auto 1.6 L (Ref Range: 2.0-8.3 x10*3/uL) 1.2 L (Ref Range: 2.0-8.3 x10*3/uL) 1.1 L (Ref Range: 2.0-8.3 x10*3/uL) Imm Gran Abs Auto 0.01 (Ref Range: 0.00-0.03 X10*3/uL) 0.00 (Ref Range: 0.00-0.03 X10*3/uL) 0.00 (Ref Range: 0.00-0.03 X10*3/uL) Lymphocytes Absolute Auto 1.2 (Ref Range: 1.2-4.9 X10*3/uL) 1.9 (Ref Range: 1.2-4.9 X10*3/uL) 1.7 (Ref Range: 1.2-4.9 X10*3/uL) Monocytes Absolute Auto 0.3 (Ref Range: 0.1-1.2 X10*3/uL) 0.4 (Ref Range: 0.1-1.2 X10*3/uL) 0.4 (Ref Range: 0.1-1.2 X10*3/uL) Eosinophils Absolute Auto 0.1 (Ref Range: 0.0-0.4 X10*3/uL) 0.2 (Ref Range: 0.0-0.4 X10*3/uL) 0.2 (Ref Range: 0.0-0.4 X10*3/uL) Basophils Absolute Auto 0.0 (Ref Range: 0.0-0.2 X10*3/uL) 0.1 (Ref Range: 0.0-0.2 X10*3/uL) 0.0 (Ref Range: 0.0-0.2 X10*3/uL) NRBC Abs Auto 0.000 (Ref Range: 0.0-0.012 X10*3/uL) 0.000 (Ref Range: 0.0-0.012 X10*3/uL) 0.000 (Ref Range: 0.0-0.012 X10*3/uL) * Lab:Prostate Specific Antige n * Collection Date 05/09/2024 04/07/2022 04/13/2021 Collection Time 10:34 AM 10:10 AM 11:11 AM Order Date 05/09/2024 04/07/2022 04/13/2021 Prostate Specific Antigen 1.12 (Ref Range: <0.05-4.0 ng/mL) 1.04 (Ref Range: <0.05-4.0 ng/mL) 0.79 (Ref Range: <0.05-4.0 ng/mL) * Lab:Lipid Panel * Collection Date 05/09/2024 04/25/2023 04/07/2022 Collection Time 10:34 AM 10:20 AM 10:10 AM Order Date 05/09/2024 04/25/2023 04/07/2022 Triglycerides 50 (Ref Range: <150 mg/dL) 60 (Ref Range: <150 mg/dL) 50 (Ref Range: mg/dL) Cholesterol 204 H (Ref Range: <200 mg/dL) 179 (Ref Range: <200 mg/dL) 211 (Ref Range: mg/dL) LDL Cholesterol Calculated 141 H (Ref Range: <100 mg/dL) 126 H (Ref Range: <100 mg/dL) 155 (Ref Range: mg/dl) HDL Cholesterol 53 (Ref Range: >40 mg/dL) 41 (Ref Range: >40 mg/dL) 46 (Ref Range: mg/dL) * Lab:Comprehensive [place]. Pane l Fast * Collection Date 05/09/2024 04/25/2023 04/07/2022 Collection Time 10:34 AM 10:20 AM 10:10 AM Order Date 05/09/2024 04/25/2023 04/07/2022 Sodium 143 (Ref Range: 135-145 mmol/L) 140 (Ref Range: 135-145 mmol/L) 139 (Ref Range: 135-145 mmol/L) Bilirubin Total 0.7 (Ref Range: 0.0-1.0 mg/dL) 0.5 (Ref Range: 0.0-1.0 mg/dL) 0.7 (Ref Range: 0.0-1.0 mg/dL) Aspartate Amino Transferase 26 (Ref Range: 5-37 U/L) 25 (Ref Range: 5-37 U/L) 29 (Ref Range: 5-37 U/L) Alanine Aminotransferase 22 (Ref Range: 0-40 U/L) 14 (Ref Range: 0-40 U/L) 25 (Ref Range: 0-40 U/L) Total Protein 8.0 (Ref Range: 6.5-8.0 g/dL) 7.2 (Ref Range: 6.5-8.0 g/dL) 7.6 (Ref Range: 6.5-8.0 g/dL) Albumin Level 4.5 (Ref Range: 3.5-5.0 g/dL) 4.0 (Ref Range: 3.5-5.0 g/dL) 4.3 (Ref Range: 3.5-5.0 g/dL) Alkaline Phosphatase 74 (Ref Range: 39-117 U/L) 62 (Ref Range: 39-117 U/L) 67 (Ref Range: 39-117 U/L) Potassium 3.8 (Ref Range: 3.3-5.1 mmol/L) 3.6 (Ref Range: 3.3-5.1 mmol/L) 3.9 (Ref Range: 3.3-5.1 mmol/L) Chloride 108 (Ref Range: 96-108 mmol/L) 108 (Ref Range: 96-108 mmol/L) 104 (Ref Range: 96-108 mmol/L) Carbon Dioxide 26 (Ref Range: 22-29 mmol/L) 24 (Ref Range: 22-29 mmol/L) 27 (Ref Range: 22-29 mmol/L) Anion Gap 13 (Ref Range: 12-20) 12 (Ref Range: 12-20) 12 (Ref Range: 12-20) Blood Urea Nitrogen 15 (Ref Range: 9-16 mg/dL) 10 (Ref Range: 9-16 mg/dL) 9 (Ref Range: 9-16 mg/dL) Creatinine 1.01 (Ref Range: 0.5-1.4 mg/dL) 0.93 (Ref Range: 0.5-1.4 mg/dL) 0.93 (Ref Range: 0.5-1.4 mg/dL) Estimated Glomerular Filt Rate > 60 > 60 > 60 Glucose Fasting 83 (Ref Range: 60-99 mg/dL) 95 (Ref Range: 60-99 mg/dL) 95 (Ref Range: 60-99 mg/dL) Calcium 9.5 (Ref Range: 8.4-10.2 mg/dL) 8.4 (Ref Range: 8.4-10.2 mg/dL) 9.1 (Ref Range: 8.4-10.2 mg/dL) * Examination: G eneral Examination: GENERAL APPEARANCE: p leasant, well nourished, well developed, in no acute distress, calm and relaxed, overweight, man. HEAD: a traumatic, normocephalic. EYES: e [...] sounds normal, no ascites, no organomegaly, no mass. RECTAL EXAM: n ormal tone, no external hemorrhoids, no masses palpable, no melena, no red blood, prostate normal, stool guaiac negative. MUSCULOSKELETAL: e xtremities unremarkable, no clubbing, cyanosis or edema, No effusion and the knees, no crepitus, no pain. PERIPHERAL PULSES: n ormal. NEUROLOGIC: a lert and oriented, cranial nerves 2-12 grossly intact, deep tendon reflexes 2+ symmetrical, motor strength normal upper and lower extremities, sensory exam intact. PSYCH: a lert, oriented. - : T he doctor examined the patient's prostate and found it to be normal. The doctor also checked for occult blood in the stool, which was negative. Assessment: * Assessment: 1. O verweight - E66.3 (Primary) N otes :He is slightly overweight. We made a plan to lose weight at a rate of one half of a pound per week. 2 . H yperlipidemia - E78.5 N otes :His fasting cholesterol is 204. We discussed diet and nutrition at length today. 3 . N eutropenia - D70.9 N otes :His total white blood cell count is slightly low. It has fallen from 3.8-3.2. The lymphocyte population is normal and the neutrophils are slightly low at 1600. He has had no infections and will be observed. 4 . N octuria - R35.1 N otes :He arises jin sleep once a night and sometimes twice to urinate. We have discussed lifestyle modifications he could make to reduce nocturia. 5 . L umbar back pain - M54.5 N otes :Back pain is mild and intermittent. It is managed conservatively. He is avoiding heavy lifting. 6 . H eadaches, cluster - G44.009 N otes :He reports having very few headaches in the last year. 7 . L eft inguinal hernia - K40.90 N otes :There is no residual hernia on either side. He has occasional mild pain in the area of the scar. 8 . B reast mass in male - N63.0 N otes :Both breasts were normal today and this problem has resolved. 9 . G out - M10.9 N otes :He has had no attacks of gout since his last visit. Plan: * Treatment: 2. N eutropenia L AB: PROFILE, FASTING (COMPREHENSIVE METABOLIC) L AB: PSA, TOTAL L AB: CBC w DIFF L AB: Lipid Panel 3. N octuria L AB: PROFILE, FASTING (COMPREHENSIVE METABOLIC) L AB: PSA, TOTAL L AB: CBC w DIFF L AB: Lipid Panel 4. O thers Continue Tadalafil Tablet, 20 MG, TAKE 1 TABLET BY MOUTH ONCE A DAY DIRECTED FOR 10 DAYS NEEDS TEVA BRAND--. * Labs: * L ab: URINE DIP STICK (Collection Date & Time - 05/15/2024) Value Reference Range S G 1.030 1.005 - 1.025 * p H 5.0 5.0 - 9.0 * L EU Negative Negative - * N IT Negative Negative - * P RO 15 Negative - Trace * G TIM Negative Negative - * K ET 5 Negative - * U BG 0.2 0.1 - 1.8 * B IL 1 0.2 - 1.3 * B LD Negative Negative - * Procedure Codes: 8 1002 URINE-NO [id number] TEST FOR BLOOD, FECES * Preventive Medicine: Counseling: C are goal [...] Other reason not done * Follow Up: 1 Year (Reason: annual exam review labs, Annual check-up) * Images: * Sign off status: Completed true * Provider: Yoli Benz MD Date: Generated for Maurisio chery/Abdelrahman/Dishasmitting on: 11:16 AM EDT History and Physical Notes * HPI (History of Present Illness) Category Sub-Category Detail Notes Depression Screening PHQ-9 Little inte rest or pleasure in doing things: Not at all Feeling down, depressed, or hopeless: No t at all Trouble falling or staying asleep, or sl eeping too much: Not at all Feeling tired or having little energy: N ot at all Poor appetite or overeating: Not at all Feeling bad about yourself o r that you are a failure, or have let yourself or your family down: Not at all Trouble concentrating on thi ngs, such as reading the newspaper or watching television: Not at all Moving or speaking so slowly that other people could have noticed; or the opposite, being so fidgety or restless that you have been moving around a lot more than usual: Not at all Thoughts that you would be b ambrocio off or of hurting yourself in some way: Not at all Total Score: 0 COVID-19 Screening Questions Have you had any new onset fever, chills, cough, congestion, sore throat, shortness of breath, muscle aches?: No Have you been exposed to the virus withi n the last 10 days?: No Have you travelled internationally in [facility] last 10 days?: No Have you been exposed to COVID-19 in the past?: No SDOH Questions SDOH Questions In the past year have you been worried about losing your housing?: No In the past year have you or any family members you live with been unable to get any of the following when it was really needed? Check all that apply:: None Examination Category Sub-Category Detail Notes General Examination GENERAL APPEARANCE: pleasant , well nourished, well developed, in no acute distress, calm and relaxed, overweight, man HEAD: atraumatic, normocep halic EYES: eomi, perrla, anicte tina, conjugate EARS: normal NOSE: septum intact NECK/THYROID: no jugular venous di stention, no carotid bruit, thyroid normal HEART: no clicks, gallops, murmurs, or rubs, regular rhythm, S1, S2 normal, no s3, or vascular bruits LUNGS: clear to auscultatio n ABDOMEN: bowel sounds normal, no ascites, no organomegaly, no mass NEUROLOGIC: alert and oriented, cranial nerves 2-12 grossly intact, deep tendon reflexes 2+ symmetrical, motor strength normal upper and lower extremities, sensory exam intact SKIN: no suspicious lesion s, anicteric PERIPHERAL PULSES: normal BREASTS: no masses palpable b ilaterally MUSCULOSKELETAL: extremities unremark able, no clubbing, cyanosis or edema, No effusion and the knees, no crepitus, no pain LYMPH NODES: no enlarged lymph no juan,spleen normal RECTAL EXAM: normal tone, no exte rnal hemorrhoids, no masses palpable, no melena, no red blood, prostate normal, stool guaiac negative PSYCH: alert, oriented ORAL CAVITY: normal, unremarkable
--- OUTSIDE RECORDS SUMMARY | 2025-04-29 11:16 | XMS_ITS | Patient Health Record ---
Author Organization [facility] Address [address] [place] [address] Care Team Providers Care Acute Dialysis Registered Nurse Name Role Phone Radu Benz MD Primary Care Provider Ethan Greenberg Jr Unavailable [phone] Allergies Allergen (clinical drug ingredient) Drug/Non Drug Allergy documented on EMR Reaction Allergy Type Onset Date Status Sinus Unknown Drug Allergy Active Reason For Referral No Information Medications Medication SIG (Take, Route, Frequency, Duration) Notes Start Date End Date Status MiraLax (colon prep) 17 GM/SCOOP mixed with Gatorade or Crystal Light Orally begin at 5:00 p.m. the day before the procedure for 1 day 08/05/2021 Active Immunizations Vaccine Route Administration Date Status Comme nts Influenza Unknown 06/10/2021 Administered Social History Tobacco Use: Social History Observation Description Date Details (start date - stop date) Never Smoker NA - NA Tobacco Use/Smoking Question Answer Notes Patient is a nonsmoker Alcohol Screen Question Answer Notes Did you have a drink containing alcohol in the p ast year? No Points 0 Interpretation Negative Problems Problem Type SNOMED Code ICD Code Onset Dates Problem Status W/U Status Risk Notes Problem 809300696 Colon cancer screening (Z12.11) Active confirmed Problem 338153501 Encounter for other preprocedural examination (Z01.818) Active confirmed Plan Of Treatment Future Test Test Name Order Date COLONOSCOPY 08/05/2021 Insurance Providers Payer Name Payer Address Payer Phone Subscriber Number Group Number Insured Name Patient Relationship to Insured Coverage Start Date Coverage End Date [facility] [address] [place] [phone] [id number] REID ALICEA Self - patient is the insured Medical (General) History Medical History History ICD Code Leukopenia Surgical History Surgery Date(Month/Year)
--- OUTSIDE RECORDS SUMMARY | 2025-04-29 11:16 | XMS_ITS | Patient Health Record ---
Author Organization Radu Benz III, MD Address [address] [place] [address] [place] [address] Care Team Providers Care [employer] Name Role Phone Dr. Radu Benz III [...] 0.2 - 1.3 BLD Negative Negative - Complete Blood Count Auto Di ff Reviewed date:05/09/2024 03:38:48 PM Interpretation: Performing Lab:[facility], [address] [place] [id number] Notes/Report: White Blood Count 3.3 4.8-10.8 X10*3/uL Red Blood Count 5.18 4.60-5.80 X10*6/uL Hemoglobin 12.2 14.0-18.0 g/dl Hematocrit 39.0 42.0-52.0 % Mean Corpuscular Volume 75.3 80.0-98.0 fL Mean Corpuscular Hemoglobin 23.6 27.0-33.0 pg Mean Corpuscular HGB Conc 31.3 31.0-36.0 g/dl Red Cell Distribution Width 13.8 11.0-16.0 % Platelet Count 333 160-400 X10*3/uL Mean Platelet Volume 10.8 9.4-12.4 fL Neutrophils Percent Auto 49.5 45-73 % Imm Gran Pct Auto 0.3 0.0-0.4 % Lymphocytes Percent Auto 37.9 20-40 % Monocytes Percent Auto 8.0 2-11 % Eosinophils Percent Auto 3.4 0-4 % Basophils Percent Auto 0.9 0-2 % NRBC Pct Auto 0.0 0.0-0.2 /100WBC Neutrophils Absolute Auto 1.6 2.0-8.3 x10*3/u L Imm Gran Abs Auto 0.01 0.00-0.03 X10*3/uL Lymphocytes Absolute Auto 1.2 1.2-4.9 X10*3/u L Monocytes Absolute Auto 0.3 0.1-1.2 X10*3/uL Eosinophils Absolute Auto 0.1 0.0-0.4 X10*3/u L Basophils Absolute Auto 0.0 0.0-0.2 X10*3/uL NRBC Abs Auto 0.000 0.0-0.012 X10*3/uL Comprehensive [place]. Panel Fa st Reviewed date:05/09/2024 03:38:48 PM Interpretation: Performing Lab:[facility], [address] [place] [phone] Notes/Report: Sodium 143 135-145 mmol/L Potassium 3.8 3.3-5.1 mmol/L Chloride 108 96-108 mmol/L Carbon Dioxide 26 22-29 mmol/L Anion Gap 13 12-20 Blood Urea Nitrogen 15 9-16 mg/dL Creatinine 1.01 0.5-1.4 mg/dL Estimated Glomerular Filt Rate > 60 NOTE: For -[place] individuals, multiply the result by 1.210. Chronic Kidney Disease: Estimated GFR < 60 mL/min/1.73m2 Severe Kidney Disease: Estimated GFR < 15 mL/min/1.73m2 Glucose Fasting 83 60-99 mg/dL Calcium 9.5 8.4-10.2 mg/dL Bilirubin Total 0.7 0.0-1.0 mg/dL Aspartate Amino Transferase 26 5-37 U/L Alanine Aminotransferase 22 0-40 U/L Total Protein 8.0 6.5-8.0 g/dL Albumin Level 4.5 3.5-5.0 g/dL Alkaline Phosphatase 74 39-117 U/L Lipid Panel Reviewed date:05/09/2024 03:38:48 PM Interpretation: Performing Lab:[facility], [address] [place] [phone] Notes/Report: Triglycerides 50 <150 mg/dL Desirable Triglyceride: less than 150 mg/dL Borderline High Triglyceride 150-199 mg/dL High Triglyceride: 200-499 mg/dL Very High Triglyceride: greater than or equal to 5OO mg/dL Cholesterol 204 <200 mg/dL Desirable Cholesterol: less than 200 mg/dL Borderline High Cholesterol: 200-239 mg/dL High Cholesterol: greater than 239 mg/dL LDL Cholesterol Calculated 141 <100 mg/dL Desirable LDL: less than 100 mg/dL Near Optimal/Above Optimal LDL: 110-129 mg/dL Borderline High LDL: 130-159 mg/dL High LDL: 160-189 mg/dL Very High LDL: greater than or equal to 190 mg/dL HDL Cholesterol 53 >40 mg/dL Desirable HDL: greater than 40 mg/dL Note: This HDL assay may give artificially low results in patients with liver disease. Prostate Specific Antigen Reviewed date:05/09/2024 03:38:48 PM Interpretation: Performing Lab:[facility], [address] [place] [phone] Notes/Report: Prostate Specific Antigen 1.12 <0.05-4.0 ng/mL PSA methodology: [place] Alinity i Chemiluminescent Microparticle Immunoassay (CMIA) Reason For Referral No Information Medications Medication SIG (Take, Route, Frequency, Duration) Notes Start Date End Date Status Tadalafil 20 MG 1 tablet Orally Once a day for 10 days Active EPINEPHrine 0.3 MG/0.3ML as directed Inj ection once prn allergy for 1 days 08/14/2020 Active Immunizations Vaccine Route Administration Date Status Comme nts Influenza Unknown 05/20/2014 Administered Influenza, quad Unknown 05/14/2020 Administered COVID PFIZER Unknown 10/14/2020 Administered Influenza, quad Unknown 05/27/2021 Administered COVID PFIZER Unknown 11/04/2020 Administered Influenza, quad Unknown 05/12/2017 Administered COVID PFIZER Unknown 07/29/2021 Administered Influenza, quad Unknown 05/03/2023 Administered Social History Tobacco Use: Social History [...] Problem Status W/U Status Risk Notes Problem 13999836 Hyperlipidemia (E78.5) Active confirmed His fasting cholesterol is 204. We discussed diet and nutrition at length today. Problem 929856358 Overweight (E66.3) Active confirmed He is slightly overweight. We made a plan to lose weight at a rate of one half of a pound per week. Problem 24837309 Other chronic pain (G89.29) Active confirmed Problem 6742534587 Pain in right knee (M25.561) Active confirmed The effusion has resolved. He will be referred to orthopedic surgery. If this recurs. The history is inconsistent with gout. Problem 73579077 Gout (M10.9) Active confirmed He has had no attacks of gout since his last visit. Problem 208430619 Microcytosis (R71.8) Active confirmed His microcytosis continues unchanged. His red cell mass is adequate. His iron studies have been normal, indicating a genetic etiology. Problem 834252572 Neutropenia (D70.9) Active confirmed His total white blood cell count is slightly low. It has fallen from 3.8-3.2. The lymphocyte population is normal and the neutrophils are slightly low at 1600. He has had no infections and will be observed. Problem 515742920 Erectile dysfunction, unspecified erectile dysfunction type (N52.9) Active confirmed This problem has been addressed with a tadalafil prescription which is effective. Problem 805718866 Osteoarthritis of spine with radiculopathy, cervical region (M47.22) Active confirmed The pain is consistent with a nerve impingement and muscle spasm which is now improving. No change in his regimen is necessary and he may return to work full-time. Problem 304623315 Lumbar back pain (M54.5) Active confirmed Back pain is mild and intermittent. It is managed conservatively . He is avoiding heavy lifting. Problem 184331628 Headaches, cluster (G44.009) Active confirmed He reports having very few headaches in the last year. Problem 124963376 Left inguinal hernia (K40.90) Active confirmed There is no residual hernia on either side. He has occasional mild pain in the area of the scar. Problem Benign prostatic hypertrophy without outflow obstruction (363442165) Benign prostatic hyperplasia, unspecified whether lower urinary tract symptoms present (N40.0) Active confirmed He rises from sleep once a night. We discussfluid restriction and lifestyle modification. Problem 80285973 Breast mass in male (N63.0) Active confirmed Both breasts were normal today and this problem has resolved. Vital Signs Heart Rate 88 /min 05/15/2024 Temperature 98.6 degrees Fahrenheit 05/15/2024 Blood pressure diastolic 76 mm Hg 05/15/2024 Height 72 in 05/15/2024 Blood pressure systolic 129 mm Hg 05/15/2024 Weight 200 lbs 05/15/2024 BMI 27.12 kg/m2 05/15/2024 Encounters Encounter Location Date Provider Diagnosis Radu Benz III, MD [address] [place] [address] [place] [address] 05/15/2024 Radu Benz Hyperlipidemia E78.5 ; Overweight [...] since his last visit. Plan Of Treatment Pending Test Test Name Order Date PROFILE, FASTING (COMPREHENSIVE METABOLI C) 01/03/2024 PROFILE, FASTING (COMPREHENSIVE METABOLI C) 05/15/2024 PROFILE, RANDOM (COMPREHENSIVE METABOLIC ) 12/11/2020 LIPID PANEL 12/11/2020 PSA, TOTAL 05/15/2024 PSA, TOTAL 01/03/2024 PSA, TOTAL 12/11/2020 CBC w DIFF 05/15/2024 CBC w DIFF 12/11/2020 ESTRADIOL (E2), RAPID 02/06/2018 XR CERVICAL SPINE 2-3 VIEWS 03/01/2017 CBC WITH AUTO DIFF 01/03/2024 Lipid Panel 05/15/2024 Lipid Panel 01/03/2024 Next Appt Details Provider Name:Radu Forbesne , 05/17/2025 04:00:00 PM, [address] [place] [address] [address], [place], [phone], Insurance Providers Payer Name Payer Address Payer Phone Subscriber Number Group Number Insured Name Patient Relationship to Insured Coverage Start Date Coverage End Date [facility] [address] [facility] [id number] [place] [phone] [id number] Earnest Oshea Self - patient is the insured Medical (General) History Medical History History ICD Code lumbar back pain headaches left inguinal hernia neutropenia right knee pain Colonic polyp, tubular adenoma August 2021 The patient has a history of knee pain and hernia. He also experiences back pain and headaches. Surgical History Surgery Date(Month/Year) colonoscopy 06/2011 Colonoscopy [facility] 2 No history Hospitalization History Reason Date(Month/Year) No history
[2025-04-29 13:28] LABS: MANUAL DIFF FLAG NO
[2025-04-29 13:36] LABS: Hematocrit 39.0 % (42.0-52.0); Hemoglobin 11.9 g/dl (14.0-18.0); Imm Gran Abs Auto 0.00 X10*3/uL (0.00-0.03); Imm Gran Pct Auto 0.0 % (0.0-0.4); Lymphocytes Absolute Auto 1.7 X10*3/uL (1.2-4.9); Mean Corpuscular HGB Conc 30.5 g/dl (31.0-36.0); Mean Corpuscular Hemoglobin 23.1 pg (27.0-33.0); Mean Corpuscular Volume 75.7 fL (80.0-98.0); NRBC Abs Auto 0.050 X10*3/uL (0.0-0.012); Platelet Count 322 X10*3/uL (160-400); Red Blood Count 5.15 X10*6/uL (4.60-5.80); White Blood Count 3.8 X10*3/uL (4.8-10.8)
[2025-04-29 13:37] LABS: NRBC Pct Auto 1.3 /100WBC (0.0-0.2)
[2025-04-29 14:00] LABS: Alanine Aminotransferase 21 U/L (0-40); Albumin Level 4.2 g/dL (3.5-5.0); Alkaline Phosphatase 63 U/L (39-117); Anion Gap 10 (12-20); Aspartate Amino Transferase 32 U/L (5-37); Blood Urea Nitrogen 8 mg/dL (9-16); Calcium 8.5 mg/dL (8.4-10.2); Carbon Dioxide 27 mmol/L (22-29); Chloride 108 mmol/L (96-108); Cholesterol 201 mg/dL (<200); Estimated Glomerular Filt Rate > 60; HDL Cholesterol 45 mg/dL (>40); Potassium 4.1 mmol/L (3.3-5.1); Sodium 141 mmol/L (135-145); Total Protein 7.3 g/dL (6.5-8.0); Triglycerides 75 mg/dL (<150)
[2025-04-29 14:30] LABS: Prostate Specific Antigen 1.28 ng/mL (<0.05-4.0)
== END 2025-04-29 09:52 | disposition home or self-care (01) ==
LOC: HO.10HDL 09:51
PROVIDERS: Visit Provider Internal Medicine Medical Oncology
DX: Z12.5 Encounter for screening for malignant neoplasm of prostate (principal); E78.5 Hyperlipidemia, unspecified; R35.1 Nocturia; D70.9 Neutropenia, unspecified
CPT/HCPCS: 36415; 80053; 80061; 84153; 85025